=== PATIENT | female | born 1970 | race Caucasian/White ===

== ENCOUNTER 2021-09-17 00:38 | Emergency (ER) | payer OTHER ==
[~2021-09-17] VITALS: Ht 170.2 cm; Wt 82.0 kg
[2021-09-17 01:19] LABS: CHLORIDE 112 mEq/L (98-107)
[2021-09-17 01:31] LABS: HEMATOCRIT 44.4 % (36.0-48.0); MEAN CORPUSCULAR HEMOGLOBIN 30.1 pg (28.0-32.0); MEAN CORPUSCULAR VOLUME 89.1 fL (81.0-99.0); PLATELET 293 x1000/uL (130-400); RED BLOOD CELL COUNT 4.98 mill/uL (4.2-5.4)
[2021-09-17 01:36] LABS: ETHANOL BLOOD 302 mg/dL
[2021-09-17] MEDS ORDERED: TETANUS, DIPHTHERIA, PERTUSSIS VAC/PF 0.5ML (>10YR OLD) IM ONE (02:15)
[2021-09-17 03:12] VITALS: BP 115/76
== END 2021-09-17 03:25 | disposition home or self-care (01) ==
LOC: ER 00:38 → EDBD 00:38 → ER 03:25
DX: S01.01XA Laceration without foreign body of scalp, initial encounter (principal); W18.39XA Other fall on same level, initial encounter; Y93.89 Activity, other specified; Y92.89 Other specified places as the place of occurrence of the external cause; Y99.8 Other external cause status
CPT/HCPCS: 12005; 36415; 70450; 80053; 80320; 85027; 90471; 90715; 99284; Z7610; G0480